=== PATIENT | male | born 1970 | race Caucasian/White ===

== ENCOUNTER 2020-11-19 17:24 | Inpatient (IN) | payer OTHER ==
[2020-11-19] MEDS ORDERED: NALOXONE 0.4 MG/ML 1 ML VIAL IV PRN (17:37)
--- NOTE | 2020-11-19 17:37 | ED ---
General Adult HPI - General Stated complaint: NSTEMI Time Seen by Provider: 11/19/20 17:28 Source: patient, EMS Mode of arrival: EMS - History of Present Illness Initial comments: Dictation was produced using [employer] dictation software. please excuse any grammatical, word or spelling errors. This patient was cared for during a federal and state declared state of emergency secondary to Covid 19 Chief Complaint: 50-year-old male sent in from [facility] for non-ST segment elevation [place] History of Present Illness: 50-year-old male he has been having on and off chest pain symptoms for the last several days. Patient has a history of tobacco abuse. He has no other medical history that he knows of. Patient was initially evaluated at [facility]. She had an elevated troponin of 1.3. He has symptoms concerning for non-ST segment elevation OH. According to the transferring physician discussion was held with our electrolysis needle operator who requested a semiconductor lab technician be activated for urgent cardiac catheterization. Patient states that his symptoms were initially pressure with a squeezing sensation to his chest. States that his pain is much improved after being treated with nitroglycerin and heparin at [facility]. Reports that his symptoms are nonpleuritic. He does not have any numbness and paresthesias to the arms or legs The ROS documented in this emergency department record has been reviewed and confirmed by me. Those systems with pertinent positive or negative responses have been documented in the HPI. All other systems are other negative and/or noncontributory. PHYSICAL EXAM: General Impression: Alert and oriented x3, not in acute distress HEENT: Normocephalic atraumatic, extra-ocular movements intact, pupils equal and reactive to light bilaterally, mucous membranes moist. Cardiovascular: Heart regular rate and rhythm Chest: Able to complete full sentences, no retractions, no tachypnea Abdomen: abdomen soft, non-tender, non-distended, no organomegaly Musculoskeletal: Pulses present and equal in all extremities, no peripheral edema Motor: no focal deficits noted Neurological: CN II-XII grossly intact, no focal motor or sensory deficits noted Skin: Intact with no visualized rashes Psych: Normal affect and mood ED course: 50-year-old male presents to our emergency department via EMS as an ER to ER transfer for non-ST segment elevation OH. Signs upon arrival are within acceptable limits. EKG does not show any signs of ST segment elevation OH. He does have some perhaps hyperacute T waves in his anterior precordial leads. Clinical presentation consistent with unstable angina/N ST JAMSH[facility]. I did speak with Dr. Schaeffer at 4:57 PM he requested a semiconductor lab technician be activated for urgent cardiac catheterization. Patient be admitted to [facility] for that his sound physician group. EKG interpretation: Ventricular rate 83, normal sinus rhythm,. Interval 172, QRS 94, QTC 451. No [place] prolongation, no QTC prolongation, no ST or T-wave changes noted. No old EKG for comparison. Overall, this EKG is unremarkable - Related Data Allergies Allergy/AdvReac Type Severity Reaction Status Date / Time No Known Allergies Allergy Verified 11/19/20 17:26 Review of Systems ROS Statement: Those systems with pertinent positive or pertinent negative responses have been documented in the HPI. ROS Other: All systems not noted in ROS Statement are negative. 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, ACL Past Psychological History: ADD/ADHD Smoking Status: Current every day smoker Past Alcohol Use History: Occasional Past Drug Use History: None Reported Course Vital Signs 11/19/20 17:26 Temperature 98 F Pulse Rate 79 Respiratory 18 Rate Blood Pressure 150/95 O2 Sat by Pulse 97 Oximetry Disposition Clinical Impression: NSTEMI (non-ST elevated myocardial infarction) Disposition: ADMITTED IP TO THIS [facility] Condition: Critical Referrals: Nonstaff,Physician [Primary Care Provider] - 1-2 days Decision Time: 17:36
[2020-11-19] MEDS ORDERED: HEPARIN SODIUM,PORCINE 5,000 UNIT/ML 1 ML VIAL IV PRN (17:38)
[2020-11-19] MEDS ORDERED: NITROGLYCERIN-D5W PMX 50 MG in DEXTROSE/WATER 1 250ML.BAG IV ONE (17:38)
[2020-11-19] MEDS ORDERED: IV FLUID CONTINUATION 1,000 ML IV ONE (17:41)
[2020-11-19] MEDS ORDERED: HEPARIN SOD,PORK IN 0.45% NACL 25,000 UNIT in 0.45% NACL 1 250ML.BAG IV SCH (17:45)
[2020-11-19] MEDS ORDERED: MIDAZOLAM 2 MG/2 ML VIAL IV ONE (17:53)
[2020-11-19] MEDS ORDERED: fentaNYL (PF) 50 MCG/ML 2 ML AMP ONE (17:54)
[2020-11-19] MEDS ORDERED: fentaNYL (PF) 50 MCG/ML 2 ML AMP IV ONE (17:54)
[2020-11-19] MEDS ORDERED: LIDOCAINE 1% INJ 10MG/ML (20 ML MDV) ONE (17:54)
[2020-11-19] MEDS ORDERED: VERAPAMIL 2.5 MG/ML 2 ML AMP ONE (17:54)
[2020-11-19] MEDS ORDERED: LIDOCAINE 1% INJ 10MG/ML (20 ML MDV) SQ ONE (17:55)
[2020-11-19] MEDS ORDERED: HEPARIN SODIUM 1,000 UN/ML (10ML VL) ONE (17:57)
[2020-11-19] MEDS ORDERED: VERAPAMIL SYRINGE (5 MG/10 ML) INTRAARTER ONE (18:00)
[2020-11-19] MEDS ORDERED: HEPARIN SODIUM 1,000 UN/ML (10ML VL) IV ONE ×2 (18:12→18:14)
[2020-11-19] MEDS ORDERED: PRASUGREL 10 MG TAB PO ONE (18:13)
[2020-11-19] MEDS ORDERED: PRASUGREL 10 MG TAB ONE (18:14)
[2020-11-19] MEDS ORDERED: IOPAMIDOL-370 125ML BTL INJ ONE ×2 (18:21)
[2020-11-19] MEDS ORDERED: IOPAMIDOL-370 100ML BTL INJ ONE ×3 (18:41→18:58)
[2020-11-19] MEDS: NITROGLYCERIN 1000MCG/10ML SYRINGE INTRACORON ONE ×3 (18:47→19:01)
[2020-11-19] MEDS ORDERED: RX INFO: IV CONTRAST WAS GIVEN 1 EACH MISC MISCELLANE PRN (19:32)
[2020-11-19] MEDS ORDERED: ATROPINE SULFATE 0.1 MG/ML 10ML SYRINGE IV PRN (19:32)
[2020-11-19] MEDS ORDERED: NITROGLYCERIN SL TABS 0.4 MG TAB SUBLINGUAL PRN (19:32)
[2020-11-19] MEDS ORDERED: ZOLPIDEM 5 MG TAB PO PRN (19:32)
[2020-11-19] MEDS ORDERED: MAG HYDROX/AL HYDROX/SIMETH 30 ML CUP PO PRN (19:32)
--- NOTE | 2020-11-19 19:39 | P.CRDCN ---
History of Present Illness History of present illness: HISTORY OF PRESENTING ILLNESS This is a pleasant 50-year-old male past medical history significant for tobacco abuse, cocaine abuse and ADHD taking Adderall and no other significant medical problems. Patient admits to only seeing a doctor for Adderall prescription however otherwise has been fairly healthy. He does smoke tobacco. Initially he denied any illicit drug use however on further interrogation he admits to cocaine abuse rarely with last cocaine use approximately 3-4 days ago. He has been having off-and-on chest pain over the last 7 days. He admits it has been occurring with exertion and felt like chest pressure going down his left arm. He presented to [facility] and was found to have non-STEMI with initial troponin 1. Otherwise platelets were 100 and creatinine normal. He was having ongoing chest pain and therefore recommendation was made for transfer to [facility] for urgent heart catheterization with possible PCI. States he rarely drinks alcohol. Family history of grandfather with coronary artery disease. DIAGNOSTICS EKG reveals sinus rhythm, ST depressions anterolaterally. Chest xray no acute process. Laboratory reviewed, creatinine 1.0, troponin 1, platelets 100. Current cardiac medications include none, Adderall. REVIEW OF SYSTEMS At the time of my exam: CONSTITUTIONAL: Denies fever or chills. CARDIOVASCULAR: + chest pain, +shortness of breath, no orthopnea, PND or palpitations. RESPIRATORY: Denies cough. GASTROINTESTINAL: Denies abdominal pain, diarrhea, constipation, nausea or vomiting. MUSCULOSKELETAL: Denies myalgias. NEUROLOGIC: Denies numbness, tingling or weakness. ENDOCRINE: Denies fatigue, weight change, polydipsia or polyurina. GENITOURINARY: Denies burning, hematuria or urgency with micturation. HEMATOLOGIC: Denies history of anemia or bleeding. PHYSICAL EXAMINATION Blood pressure 150/95 heart rate 79 afebrile and maintaining oxygen saturation on 2 L nasal cannula. CONSTITUTIONAL: Mild distress. HEENT: Head is normocephalic. Pupils are equal, round. Sclerae anicteric. Mucous membranes of the mouth are moist. No JVD. No carotid bruit. CHEST EXAMINATION: Lungs are clear to auscultation. No chest wall tenderness is noted on palpation or with deep breathing. HEART EXAMINATION: Regular rate and rhythm. S1, S2 heard. No murmurs, gallops or rub. ABDOMEN: Soft, nontender. Positive bowel sounds. EXTREMITIES: 2+ peripheral pulses, no lower extremity edema and no calf tenderness. NEUROLOGIC EXAMINATION: Patient is awake, alert and oriented x3. ASSESSMENT 1. Non-STEMI with ongoing chest pain 2. Tobacco abuse 3. Cocaine abuse 4. Elevated blood pressure 5. Mild thrombocytopenia, no history of hematochezia or melena PLAN Discussed risks and benefits of heart catheterization with patient who will take patient urgently for heart catheterization. No beta yany given recent cocaine use. Tobacco cessation. Further recommendations to follow. Check 2-D echo. 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, ACL Past Psychological History: ADD/ADHD Smoking Status: Current every day smoker Past Alcohol Use History: Occasional Past Drug Use History: None Reported Medications and Allergies Home Medications Medication Instructions Recorded Confirmed Type Dextroamphetamine/Amphetamine 30 mg PO BID 11/19/20 11/19/20 History [Adderall] Omeprazole Magnesium [PriLOSEC OTC] 20 mg PO DAILY PRN 11/19/20 11/19/20 History Allergies Allergy/AdvReac Type Severity Reaction Status Date / Time No Known Allergies Allergy Verified 11/19/20 17:43 Physical Exam Vitals: Vital Signs Temp Pulse Resp BP Pulse Ox 11/19/20 17:40 80 18 147/79 99 11/19/20 17:26 98 F 79 18 150/95 97 Intake and Output 11/19/20 11/19/20 11/19/20 06:59 14:59 22:59 Intake Total 600 Output Total 500 Balance 100 Intake: IV 600 Output: Urine 500 Other: Weight 99.79 kg Results Current Medications Generic Name Dose Route Start Last Admin Trade Name Freq PRN Reason Stop Dose Admin Heparin Sodium (Porcine) 0 unit 11/19/20 17:38 Heparin Sodium,Porcine 5,000 Unit/Ml 1 Ml Vial IV PER PROTOCOL PRN Low PTT Protocol Nitroglycerin/Dextrose 50 mg/ 250 mls @ 3 mls/hr 11/19/20 17:38 IV Solution IV 11/20/20 17:37 .Q24H ONE Protocol 10 MCG/MIN Heparin Sodium/Sodium Chloride 250 mls @ 9.999 mls/hr 11/19/20 17:45 25,000 unit/ Sodium Chloride IV .Q24H [facility] Protocol 10.02 UNITS/KG/HR Naloxone HCl 0.2 mg 11/19/20 17:37 Naloxone 0.4 Mg/Ml 1 Ml Vial IV Q2M PRN Opioid Reversal Intake and Output 11/19/20 11/19/20 11/19/20 06:59 14:59 22:59 Intake Total 600 Output Total 500 Balance 100 Intake: IV 600 Output: Urine 500 Other: Weight 99.79 kg Patient Weight 11/20/20 06:59 Weight 99.79 kg
--- NOTE | 2020-11-19 19:59 | P.PRCINT ---
Percutaneous Coronary Int. - Percutaneous Coronary Intervention Percutaneous Coronary Intervention: PROCEDURES PERFORMED: Left heart catheterization, bilateral coronary angiography, PCI of mid RCA with 3.5 x 38 mm Xience SEBLE distal RCA with a 3.5 x 23mm Xience SEBLE, post dilated with a 4.0 NC balloon, PCI of proximal circumflex with a 3.25 x 23mm Xience SEBLE, post dilated with a 3.5 NC balloon. INDICATION: Non-STEMI with ongoing chest pain HISTORY: Patient is a pleasant 50-year-old male with history of ADHD and tobacco abuse who presented with off and on chest pain over the last 7 days which has been ongoing since this morning. Patient initially presented to [facility] and was transferred for urgent catheterization due to non-STEMI with ongoing chest pain. Patient later admitted to cocaine abuse. CONSENT:I have discussed the risks, benefits and alternative therapies for the above-mentioned procedure and for both sedation/analgesia as well as necessary blood product administration, if indicated, as they pertain to this patient. The patient has indicated understanding and acceptance of the risks and procedures discussed. PROCEDURE: After the risks, benefits and alternatives of the above mentioned procedure explained in detail with the patient, informed consent was obtained. Patient was taken to the catheterization lab and prepped and draped in usual fashion. 1% lidocaine was used to anesthetize the right radial artery. A 6- Bruneian sheath was placed in the right radial artery using modified Seldinger technique. Left coronary angiography was performed with a 5-Bruneian JL 3.5 catheter and right coronary angiography was performed with a 5-Bruneian JR5 catheter in various views. Initial angiograms showed ZORA 1-2 flow of RCA and circumflex and somewhat surprisingly ZORA 0 flow of the LAD with no significant disease identified in the LAD and competitive flow. There was consideration of either microvascular dysfunction of the LAD or competitive flow from a more distal LAD lesion and collaterals. Therefore the decision was made to intervene on the RCA first. Heparin was given for an ACT over 250. A 6-Bruneian AL2 guide was used to engage the RCA. A 0.014 BMW wire was advanced into the distal RCA. The lesion was predilated with a 3.0 x 8 mm balloon. Next a 3.5 x 15 mm Xience drug-eluting stent was placed at the distal lesion. Angiograms did show some pseudo-lesion however a significant long 60-70% mid RCA stenosis with a more focal 80% stenosis. Therefore a 3.5 x 38 mm Xience SEBLE was placed at the mid RCA. The mid RCA stent was postdilated with a 4.0 x 20 mm noncompliant balloon. Preintervention there was ZORA 2 flow with 99% distal RCA and mid 80% RCA stenosis. Postintervention there was less than 10% stenosis with ZORA 3 flow. Next the left main was engaged with a 6-Bruneian CLS 3.5 guide. There was now ZORA 3 flow of the LAD without significant stenosis in the LAD. Further questioning revealed that he had in fact used cocaine the last 3-4 days and therefore consideration of spasm of LAD with microvascular dysfunction causing initial ZORA 0 flow. A 0.014 BMW wire was advanced into the distal circumflex. The lesion was predilated with a 2.5 x 12 mm balloon. Next a 3.25 x 23 mm Xience SEBLE was placed in the proximal circumflex. The stent was postdilated with a 3.5 x 12 mm noncompliant balloon. Preintervention there was ZORA 1 flow with a 99% circumflex stenosis and postintervention there was 0% stenosis with ZORA 3 flow. There was a more distal 30-40% circumflex stenosis which was there previously and felt best treated medically. The guide was then removed. The right radial sheath was removed and a TR band was placed with hemostasis achieved. The patient tolerated the procedure well. Patient was transported back to the post catheterization holding area in stable condition. Conscious Sedation: Patient was monitored under the direct supervision of vision of myself for conscious sedation using Versed and fentanyl for a total duration of 73 minutes HEMODYNAMICS: Aorta: 136/82 SELECTIVE CORONARY ARTERIOGRAPHY: LEFT MAIN: The left main is a large caliber vessel which bifurcates into the LAD and circumflex. There is no significant stenosis. LEFT ANTERIOR DESCENDING CORONARY ARTERY: LAD is a large caliber vessel which wraps around to the apex. There are mild luminal irregularities. Initial ZORA 0 flow improved to ZORA 3 flow without significant disease by the end of case concerning for microvascular disease. LEFT CIRCUMFLEX CORONARY ARTERY: Left circumflex is a moderate to large caliber vessel with a proximal 99% stenosis and a mid 30-40% stenosis. RIGHT CORONARY ARTERY: The right coronary artery is a large caliber vessel which gives off a PDA and PLV branch and is the dominant vessel. There is a proximal RCA 30% stenosis. There is a mid RCA long 60-70% stenosis with a more focal 80% stenosis. The distal RCA has a focal 99% stenosis with ZORA 2 flow. FINAL IMPRESSION: 1. Coronary artery disease as described above with 99% circumflex stenosis and 99% RCA stenosis, s/p PCI of mid RCA with 3.5 x 38 mm Xience SEBLE distal RCA with a 3.5 x 23mm Xience SEBLE, post dilated with a 4.0 NC balloon, PCI of proximal circumflex with a 3.25 x 23mm Xience SEBLE, post dilated with a 3.5 NC balloon. 2. Initial ZORA 0 flow of LAD without significant lesion identified, improved by then end of the case, suspect related to microvascular dysfunction from cocaine use and possible vasospasm. 3. Cocaine abuse 4. Tobacco abuse 5. NSTEMI PLAN: 1. Aggressive risk factor modification per most recent ACC/AHA guidelines. 2. Continue dual antiplatelets for 12 months. 3. No beta blockers secondary to cocaine abuse. Patient does not wish for family to know of cocaine abuse and will comply with his wishes. 4. Advised total tobacco and cocaine cessation.
[2020-11-19 20:48] LABS: Glucose,Whole Blood 103 mg/dL (75-99)
--- NOTE | 2020-11-19 22:24 | P.HPIM ---
History of Present Illness H&P Date: 11/19/20 This is a 50-year-old male with a PMH of tobacco abuse, cocaine abuse, and obesity who presented to the emergency room as a transfer from [facility]. The patient notes that he was in his usual state of health until about 7-10 days ago when he began having intermittent substernal pressure-like chest discomfort. He reports that the pain gradually worsened in severity, and was a 10 out of 10 earlier today, radiating to both arms, with associated nausea and shortness of breath. Reported that the pain had no alleviating or exacerbating features. Denied palpitations, dizziness, or diaphoresis. At that time, the patient decided to go to [facility] emergency room where he underwent an extensive evaluation which was all reviewed. Troponin was noted to be at 1.353, with an EKG showing normal sinus rhythm at [address]/T-wave changes noted. Chest x-ray was unremarkable. The patient was given sublingual nitroglycerin and was started on IV heparin infusion which did not completely alleviate his symptoms. At that time, the patient was ultimately transferred to [facility] emergency room. The case was discussed with cardiology who proceeded with an urgent cardiac catheterization (right radial approach) which revealed 99% stenosis of the circumflex and the RCA with PCI 3 (SEBLE) along with suspected vasospasm of LAD. The patient was subsequently brought to the emergency room where he was seen and evaluated. Patient reports feeling back to his baseline at time of interview. He reported no active complaints. Denied further episodes of chest discomfort, palpitations, or shortness of breath. Also denied nausea, vomiting, abdominal pain, fever, chills, cough. Reported that his last use of cocaine was a single line 5 days ago. The patient did report that he has been experiencing left-sided calf cramping pain after significant walking for the past 1-2 years, which is resolved with rest. Laboratory evaluation from [facility] was reviewed and revealed WBC count of 10.0, hemoglobin 15.4, platelets 100, INR 1.0, sodium 139, potassium 4.1, chloride 101, CO2 27.9, BUN 11, creatinine 1.0, glucose 105. Review of Systems Pertinent positives and negatives as discussed in HPI, a complete review of systems was performed and all other systems are negative. 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, ACL Past Psychological History: ADD/ADHD Smoking Status: Current every day smoker Past Alcohol Use History: Occasional Past Drug Use History: None Reported Medications and Allergies Home Medications Medication Instructions Recorded Confirmed Type Dextroamphetamine/Amphetamine 30 mg PO BID 11/19/20 11/19/20 History [Adderall] Omeprazole Magnesium [PriLOSEC OTC] 20 mg PO DAILY PRN 11/19/20 11/19/20 History Allergies Allergy/AdvReac Type Severity Reaction Status Date / Time No Known Allergies Allergy Verified 11/19/20 17:43 Physical Exam Vitals: Vital Signs Temp Pulse Resp BP Pulse Ox 11/19/20 17:40 80 18 147/79 99 11/19/20 17:26 98 F 79 18 150/95 97 Intake and Output 11/19/20 11/19/20 11/19/20 06:59 14:59 22:59 Intake Total 600 Output Total 500 Balance 100 Intake: IV 600 Output: Urine 500 Other: Weight 99.79 kg General: non toxic, no distress, appears at stated age, obese Derm: no unusual rashes/lesions no unusual ecchymoses, warm, dry Head: atraumatic, normocephalic, symmetric Eyes: EOMI, no lid lag, anicteric sclera, pupils equal round reactive to light ENT: Nose and ears atraumatic, no thrush, no pharyngeal erythema Neck: No thyromegaly, no cervical lymphadenopathy, trachea midline, supple Mouth: no lip lesion, mucus membranes moist Cardiovascular: S1S2 reg, no murmur, positive posterior tibial pulse bilateral, no edema, capillary refill less than 2 seconds Lungs: CTA bilateral, no rhonchi, no rales , no accessory muscle use Abdominal: soft, nontender to palpation, no guarding, no appreciable organomegaly, normal bowel sounds Ext: no gross muscle atrophy, muscle strength 5 out of 5 in all 4 extremities grossly, no contractures, Neuro: CN II-XI grossly intact, light touch intact all 4 extremities, finger to nose within normal limits, Psych: Alert, oriented, appropriate affect Results Labs: Abnormal Lab Results - Last 24 Hours (Table) 11/19/20 Range/Units 20:47 POC Glucose (mg/dL) 103 H (75-99) mg/dL Assessment and Plan Plan: NSTEMI status post PCI 3 (mid RCA, distal RCA, proximal circumflex) -Currently on heparin infusion, aspirin, Effient as per the Cardiology service -Cardiac monitoring -Strongly advised patient on importance of cessation from cocaine and tobacco abuse -Check A1c and lipid panel LLE intermittent claudication -Advised patient to follow-up with Primary care or a vascular surgery for SAMMY studies Thrombocytopenia, no baseline available -Monitor for now Cocaine and tobacco abuse -Strongly advised on the importance of cessation DVT prophylaxis -Heparin infusion The patient is admitted with an anticipated greater than 2 midnight stay for evaluation of NSTEMI CODE STATUS: Full Code Discussed with: Patient, RN Anticipated discharge date: 2-[address]: Home A total of 40 minutes was spent on the care of this complex patient more than 50% of the time was spent in counseling and care coordination.
[2020-11-20 04:30] LABS: HCT 44.9 % (39.0-53.0); MCH 32.5 pg (25.0-35.0); MCHC 33.5 g/dL (31.0-37.0); MCV 97.2 fL (80.0-100.0); Mean Platelet Volume 10.9; Platelet Count 97 k/uL (150-450); RBC 4.62 m/uL (4.30-5.90); RDW 12.6 % (11.5-15.5); WBC 8.8 k/uL (3.8-10.6)
[2020-11-20 04:37] LABS: African American GFR (CKD) >90 (>60 ml/min/1.73 sqM); Anion Gap 5 mmol/L; Blood Urea Nitrogen 11 mg/dL (9-20); Calcium 8.7 mg/dL (8.4-10.2); Carbon Dioxide 27 mmol/L (22-30); Chloride 104 mmol/L (98-107); Cholesterol 153 mg/dL (<200); Glucose 107 mg/dL (74-99); HDL Cholesterol 36 mg/dL (40-60); LDL Cholesterol,Calculated 91 mg/dL (0-99); Non-African American GFR(CKD) >90 (>60 ml/min/1.73 sqM); Sodium 136 mmol/L (137-145); Triglycerides 130 mg/dL (<150)
[2020-11-20 04:53] LABS: Creatine Kinase MB 74.8 ng/mL (0.0-2.4)
--- NOTE | 2020-11-20 07:54 | XR ---
EXAMINATION TYPE: XR chest 1V portable DATE OF EXAM: 11/20/2020 Comparison: None Clinical History: 50-year-old male male with shortness of breath Findings: The heart is upper limits of normal in size. Aorta and pulmonary vasculature within normal limits. For portable technique, some hazy peripheral densities likely related to overlying soft tissue. No fr ank consolidation or pleural effusion seen at this time. Impression: No definite acute cardiopulmonary process at this time.
[2020-11-20] MEDS: ASPIRIN 81 MG PO SCH (08:47)
[2020-11-20] MEDS: PRASUGREL 10 MG TAB PO SCH (11:56)
[2020-11-20 12:45] VITALS: BMI 32.7
--- NOTE | 2020-11-20 12:57 | P.PN ---
Subjective Progress Note Date: 11/20/20 No new complaints, patient doing well s/p LHC with SEBLE x 3 to the prox-left circ, prox and mid RCA. No chest pain, palps, dyspnea, sweats, Objective - Vital Signs Vital signs: Vital Signs Temp 97.5 F L 11/20/20 12:00 Pulse 76 11/20/20 12:48 Resp 19 11/20/20 12:00 BP 135/78 11/20/20 12:48 Pulse Ox 95 11/20/20 12:00 Intake & Output 11/19/20 11/20/20 11/20/20 18:59 06:59 18:59 Intake Total 600 1100 1020 Output Total 2400 1150 Balance 600 -1300 -130 Weight 99.79 kg 100.5 kg 100.5 kg Intake: IV 600 1100 300 0.9 1100 300 Oral 720 Output: Urine 2400 1150 Other: Voiding Method Urinal Urinal - Exam Gen: awake, alert HEENT: normocephalic, atraumatic, good hearing acuity, moist mucous membranes Resp: good air exchange, breathing comfortably with no accessory muscle use, clear to auscultation bilaterally CVS: good distal perfusion x 4, regular rate and rhythm without murmurs GI: soft, NTTP, ND : no SPT, no CVAT, haas catheter not present MSK: no pitting edema, no clubbing Neuro: non-focal, moving all extremities Psych: cooperative, euthymic mood - Labs CBC & Chem 7: 11/20/20 03:43 11/20/20 03:43 Labs: Abnormal Lab Results - Last 24 Hours (Table) 11/19/20 11/20/20 11/20/20 Range/Units 20:47 03:43 03:43 Plt Count 97 L (150-450) k/uL Sodium 136 L (137-145) mmol/L Glucose 107 H (74-99) mg/dL POC Glucose (mg/dL) 103 H (75-99) mg/dL CK-MB (CK-2) (0.0-2.4) ng/mL Troponin I (0.000-0.034) ng/mL HDL Cholesterol 36 L (40-60) mg/dL 11/20/20 Range/Units 03:43 Plt Count (150-450) k/uL Sodium (137-145) mmol/L Glucose (74-99) mg/dL POC Glucose (mg/dL) (75-99) mg/dL CK-MB (CK-2) 74.8 H (0.0-2.4) ng/mL Troponin I 25.000 H* (0.000-0.034) ng/mL HDL Cholesterol (40-60) mg/dL Assessment and Plan Assessment: NSTEMI status post PCI 3 (mid RCA, distal RCA, proximal circumflex) -Currently on ASA/Effient -Cardiac monitoring -Strongly advised patient on importance of cessation from cocaine and tobacco abuse -Check A1c and lipid panel; LDL 91, HDL 36; A1c pending -pending echo -cardiology following LLE intermittent claudication -Advised patient to follow-up with Primary care or a vascular surgery for SAMMY studies -patient will follow up in [place], which is where he is from [facility], no baseline available -Monitor for now Cocaine and tobacco abuse -Strongly advised on the importance of cessation DVT prophylaxis -Heparin infusion The patient is admitted with an anticipated greater than 2 midnight stay for evaluation of NSTEMI CODE STATUS: Full Code Discussed with: Patient, RN Anticipated discharge date: 2-[address]: Home
--- NOTE | 2020-11-20 13:31 | ECHOF ---
Referral Reason:s/p stemi, stent placement MEASUREMENTS -------- HEIGHT: 175.3 cm WEIGHT: 103.9 kg BP: 118/67 RVIDd: 3.0 cm (< 3.3) IVSd: 1.2 cm (0.6 - 1.1) LVIDd: 5.5 cm (3.9 - 5.3) LVPWd: 1.3 cm (0.6 - 1.1) IVSs: 1.7 cm LVIDs: 3.8 cm LVPWs: 1.8 cm LA Diam: 3.6 cm (2.7 - 3.8) Ao Diam: 4.3 cm (2.0 - 3.7) AV Cusp: 2.3 cm (1.5 - 2.6) MV EXCURSION: 17.354 mm (> 18.000) MV EF SLOPE: 110 mm/s (70 - 150) EPSS: 1.0 cm MV E Harley: 0.80 m/s MV DecT: 185 ms MV A Harley: 0.94 m/s MV E/A Ratio: 0.85 AV maxP.11 mmHg AV meanP.65 mmHg FINDINGS -------- Sinus rhythm. This was a technically adequate study. The left ventricular size is normal. There is mild concentric left ventricular hypertrophy. Overa ll left ventricular systolic function is normal with, an EF between 60 - 65 %. The right ventricle is normal in size. The left atrium is normal in size. The right atrium is normal in size. Interatrial and interventricular septum intact. The aortic valve is bicuspid. There is mild aortic valve sclerosis. There is mild aortic stenosis present. Peak/mean gradient across the Aortic Valve is 13.11mmHg / 5.65mmHg. There is trace to mild mitral regurgitation. The tricuspid valve appears structurally normal. The pulmonic valve was not well visualized. The aortic root is dilated measuring 4.3cm. Normal inferior vena cava with normal inspiratory collapse consistent with estimated right atrial pre ssure of 5 mmHg. There is no pericardial effusion. CONCLUSIONS -------- 1. The left ventricular size is normal. 2. There is mild concentric left ventricular hypertrophy. 3. Overall left ventricular systolic function is normal with, an EF between 60 - 65 %. 4. The aortic valve is bicuspid. 5. There is mild aortic valve sclerosis. 6. There is mild aortic stenosis present. 7. Peak/mean gradient across the Aortic Valve is 13.11mmHg / 5.65mmHg. 8. There is trace to mild mitral regurgitation. 9. The aortic root is dilated measuring 4.3cm. 10. There is no pericardial effusion. TELEPHONE MESSENGER: Lara Kent RDCS
--- NOTE | 2020-11-20 13:38 | PN ---
PROGRESS NOTE Jose is a 50-year-old gentleman who is admitted to hospital with acute coronary syndrome. He was initially in the emergency room at [facility] and had been transferred over to [facility]. He has history of tobacco abuse, cocaine abuse, and has attention deficit hyperactivity disorder. The patient apparently used cocaine a few days prior to coming in. Underwent cardiac catheterization and angioplasty of the mid RCA and proximal circumflex coronary artery. This morning, patient of is free of chest pain and is free of symptoms. On exam: Heart rate is 93 beats per minute. Blood pressure is 181/61, respiratory rate 18, O2 sats 96% on room air. There is no jugular venous distention. Chest exam reveals good air entry bilaterally. Heart exam reveals first and second heart sounds. No gallop. No murmur. No rub. Right radial artery access site appears normal. Exam of extremities did not reveal any edema. Labs show a hemoglobin of 15, platelet count is 97. Troponin is 55. ASSESSMENT: 1. Acute coronary syndrome. 2. Cocaine abuse. PLAN: I will treat the patient with aspirin, Lipitor, Effient. I was going to treat him with metoprolol, but given the history of cocaine abuse, I am going to stop it. I will obtain a 2D echo to evaluate his LV function. We will transfer him out of ICU. SUPA / BRIAN: [id number] /
[2020-11-20 14:24] LABS: Hemoglobin A1C 5.6 % (4.0-6.0)
[2020-11-20] MEDS: ATORVASTATIN 80 MG TAB PO SCH (20:34)
[2020-11-20] MEDS ORDERED: METOPROLOL TARTRATE 25 MG TAB PO SCH (21:00)
--- NOTE | 2020-11-21 07:45 | XR ---
EXAMINATION TYPE: XR chest 1V portable DATE OF EXAM: 11/21/2020 COMPARISON: 11/20/2020 HISTORY: Shortness of breath TECHNIQUE: Single frontal view of the chest is obtained. FINDINGS: Heart size is prominent. No overt failure or pneumothorax. No pleural effusion. No interst itial edema. No consolidative pneumonia. Mild soft tissue prominence right paratracheal region. IMPRESSION: No acute process. Mild indentation right paratracheal line could be positional slight ro tation follow-up x-ray recommended.
[2020-11-21] MEDS: PRASUGREL 10 MG TAB PO SCH (07:46)
[2020-11-21] MEDS: ASPIRIN 81 MG PO SCH (07:47)
[2020-11-21 08:36] LABS: African American GFR (CKD) >90 (>60 ml/min/1.73 sqM); Anion Gap 7 mmol/L; Blood Urea Nitrogen 12 mg/dL (9-20); Calcium 8.9 mg/dL (8.4-10.2); Carbon Dioxide 29 mmol/L (22-30); Chloride 103 mmol/L (98-107); Glucose 112 mg/dL (74-99); Non-African American GFR(CKD) >90 (>60 ml/min/1.73 sqM); Potassium 4.4 mmol/L (3.5-5.1); Sodium 139 mmol/L (137-145)
[2020-11-21] MEDS ORDERED: METOPROLOL TARTRATE 12.5 MG TAB PO SCH (13:15)
--- NOTE | 2020-11-21 14:41 | P.PN ---
Subjective Progress Note Date: 11/21/20 This is a pleasant 50-year-old gentleman who was admitted to the hospital with acute coronary syndrome. He initially presented to the emergency room at [facility] and was transferred here to [facility]. He has a history of tobacco abuse, cocaine abuse, and attention deficit hyperactivity disorder. Patient apparently uses cocaine a few days prior to coming in. He is found to have elevation of his troponins which peaked at 25. He underwent cardiac catheterization and angioplasty of the mid RCA and proximal circumflex coronary artery. Overall he is doing well. Vital signs are stable. Labs are stable. He is currently on aspirin 81 mg by mouth daily, Lipitor 80 mg by mouth daily at bedtime and Effient. An echocardiogram done yesterday which showed normal LV systolic function with an ejection fraction between 60-65%, bicuspid aortic valve, mild aortic valve sclerosis, mild aortic stenosis, trace to mild mitral regurgitation and dilated aortic root at 4.3 cm. Objective - Vital Signs Vital signs: Vital Signs Temp 97.2 F L 11/21/20 12:00 Pulse 76 11/21/20 12:00 Resp 18 11/21/20 12:00 BP 136/81 11/21/20 12:00 Pulse Ox 98 11/21/20 12:00 Intake & Output 11/20/20 11/21/20 11/21/20 18:59 06:59 18:59 Intake Total 1200 236 Output Total 1150 Balance 50 236 Weight 100.5 kg 98.3 kg Intake: IV 300 0.9 300 Oral 900 236 Output: Urine 1150 Other: Voiding Method Urinal Toilet # Voids 1 3 - Exam PHYSICAL EXAMINATION: HEENT: Head is atraumatic, normocephalic. Pupils equal, round. Neck is supple. There is no elevated jugular venous pressure. HEART EXAMINATION: Heart sounds regular, S1 and S2 normal. No murmur or gallop heard. CHEST EXAMINATION: Lungs are clear to auscultation and precussion. No chest wall tenderness is noted on palpation or with deep breathing. ABDOMEN: Soft, nontender. Bowel sounds are heard. No organomegaly noted. EXTREMITIES: 2+ peripheral pulses with no evidence of peripheral edema and no calf tenderness noted. Right radial puncture site soft with no ecchymosis or hematoma. NEUROLOGIC patient is awake, alert and oriented x3. . - Labs CBC & Chem 7: 02/13/21 03:43 11/21/20 07:09 Labs: Abnormal Lab Results - Last 24 Hours (Table) 11/21/20 Range/Units 07:09 Glucose 112 H (74-99) mg/dL Assessment and Plan Assessment: #1 non-ST elevation MO status post PCI involving the RCA and circumflex 2 cocaine abuse 3 evidence of bicuspid aortic valve 4 dilated aortic root Plan: From cardiology's perspective medications reviewed and will continue the same. Anticipate the patient will be discharged tomorrow. We'll continue to follow the patient right further recommendations accordingly. The above dictated assessment and findings were discussed with signing physician. The impression and plan of care have been directed as dictated. Ivy Galaviz, Nurse Practitioner, acting as scribe for signing physician.
--- NOTE | 2020-11-21 15:17 | P.PN ---
Subjective Progress Note Date: 11/21/20 No new complaints today. Objective - Vital Signs Vital signs: Vital Signs Temp 97.2 F L 11/21/20 12:00 Pulse 76 11/21/20 12:00 Resp 18 11/21/20 12:00 BP 136/81 11/21/20 12:00 Pulse Ox 98 11/21/20 12:00 Intake & Output 11/20/20 11/21/20 11/21/20 18:59 06:59 18:59 Intake Total 1200 236 Output Total 1150 Balance 50 236 Weight 100.5 kg 98.3 kg Intake: IV 300 0.9 300 Oral 900 236 Output: Urine 1150 Other: Voiding Method Urinal Toilet # Voids 1 3 - Exam Gen: awake, alert HEENT: normocephalic, atraumatic, good hearing acuity, moist mucous membranes Resp: good air exchange, breathing comfortably with no accessory muscle use, clear to auscultation bilaterally CVS: good distal perfusion x 4, regular rate and rhythm without murmurs GI: soft, NTTP, ND : no SPT, no CVAT, haas catheter not present MSK: no pitting edema, no clubbing Neuro: non-focal, moving all extremities Psych: cooperative, euthymic mood - Labs CBC & Chem 7: 11/20/20 03:43 11/21/20 07:09 Labs: Abnormal Lab Results - Last 24 Hours (Table) 11/21/20 Range/Units 07:09 Glucose 112 H (74-99) mg/dL Assessment and Plan Assessment: NSTEMI status post PCI 3 (mid RCA, distal RCA, proximal circumflex) -Currently on ASA/Effient -Cardiac monitoring -Strongly advised patient on importance of cessation from cocaine and tobacco abuse -Check A1c and lipid panel; LDL 91, HDL 36; A1c pending -pending echo -cardiology following LLE intermittent claudication -Advised patient to follow-up with Primary care or a vascular surgery for SAMMY studies -patient will follow up in [place], which is where he is from Thrombocytopenia, no baseline available -Monitor for now Cocaine and tobacco abuse -Strongly advised on the importance of cessation DVT prophylaxis -Heparin infusion The patient is admitted with an anticipated greater than 2 midnight stay for evaluation of NSTEMI CODE STATUS: Full Code Discussed with: Patient, RN Anticipated discharge date: 2-[address]: Home
[2020-11-21] MEDS: ATORVASTATIN 80 MG TAB PO SCH (20:39)
[2020-11-22] MEDS: PRASUGREL 10 MG TAB PO SCH (10:20)
[2020-11-22] MEDS: ASPIRIN 81 MG PO SCH (10:20)
[2020-11-22 10:50] VITALS: BP 131/71; PULSE 69; RESP 17; TEMP 98.4
--- NOTE | 2020-11-22 11:40 | P.DS ---
Providers Date of admission: 11/19/20 17:37 Expected date of discharge: 11/22/20 Attending physician: Navjot Rose MD Consults: 11/19/20 17:37 Consult Physician Stat Consulting Provider: Miguel Angel Schaeffer Consult Reason/Comments: nstemi Do you want consulting provider notified?: Already Contacted 11/19/20 19:32 Consult Physician Routine Consulting Provider: [facility] Consult Reason/Comments: Post Interventional patient Do you want consulting provider notified?: Already Contacted Primary care physician: Physician Nonstaff Hospital Course: 1. NSTEMI 2. LLE claudication 3. Thrombocytopenia 4. Cocaine/Tobacco Abuse 50 year old man with history of cocaine/tobacco abuse presented with acute onset chest pain as a transfer from [facility], and was taken emergently to the medical laboratory scientist where he was discovered to have 3 lesions warranting PCI (mid RCA, distal RCA, prox-left circ). He was loaded with effient, and started on aspirin and statin. He was considered for beta-yany, but this was deferred due to history of cocaine abuse. Post-cath echo demonstrated good EF, no WMA, mild , no diastolic dysfunction. Patient was cleared by cardiology to go home with plans to follow up with a technical buyer in [place], which is where he is from. Cocaine/tobacco use cessation counseling given. I spent 31 minutes coordinating this discharge. Assessment: Gen: awake, alert HEENT: normocephalic, atraumatic, good hearing acuity, moist mucous membranes Resp: good air exchange, breathing comfortably with no accessory muscle use, clear to auscultation bilaterally CVS: good distal perfusion x 4, regular rate and rhythm without murmurs GI: soft, NTTP, ND : no SPT, no CVAT, haas catheter not present MSK: no pitting edema, no clubbing Neuro: non-focal, moving all extremities Psych: cooperative, euthymic mood Patient Condition at Discharge: Good Plan - Discharge Summary Discharge Rx Participant: Yes New Discharge Prescriptions: New Aspirin 81 mg PO DAILY #30 chew Prasugrel [Effient] 10 mg PO DAILY #30 tab Atorvastatin [Lipitor] 80 mg PO HS #30 tab Nitroglycerin Sl Tabs [Nitrostat] 0.4 mg SUBLINGUAL Q5M PRN #15 tab PRN Reason: Chest Pain Continue Omeprazole Magnesium [PriLOSEC OTC] 20 mg PO DAILY PRN PRN Reason: Heartburn Discontinued Dextroamphetamine/Amphetamine [Adderall] 30 mg PO BID Discharge Medication List Omeprazole Magnesium [PriLOSEC OTC] 20 mg PO DAILY PRN 11/19/20 [History] Aspirin 81 mg PO DAILY #30 chew 11/21/20 [Rx] Atorvastatin [Lipitor] 80 mg PO HS #30 tab 11/21/20 [Rx] Nitroglycerin Sl Tabs [Nitrostat] 0.4 mg SUBLINGUAL Q5M PRN #15 tab 11/21/20 [Rx] Prasugrel [Effient] 10 mg PO DAILY #30 tab 11/21/20 [Rx] Follow up Appointment(s)/Referral(s): Miguel Angel Schaeffer DO [STAFF PHYSICIAN] - 1 Week Nonstaff,Physician [Primary Care Provider] - 1-2 days Patient Instructions/Handouts: *Surgery [facility] - After Heart Catheterization - [place] Worker Instructions, Heart Attack (DC), After Radial Heart Catheterization (GEN) Activity/Diet/Wound Care/Special Instructions: do not submerge wrist in water avoid bending/flexing wrist for 1 week do not lift any heavy object for 7-10 days Discharge Disposition: HOME SELF-CARE
--- NOTE | 2020-11-22 13:50 | P.PN ---
Subjective Progress Note Date: 11/22/20 HISTORY OF PRESENT ILLNESS: Patient is status post cardiac catheterization with PCI to the RCA and circumflex. Patient denies chest pain or pressure. He denies shortness of breath. Vital signs are stable. He is anxious to be discharged home today. PHYSICAL EXAM: VITAL SIGNS: Reviewed. GENERAL: Well-developed in no acute distress. NECK: Supple. No JVD or thyromegaly LUNGS: Respirations even and unlabored. Lungs essentially clear to auscultation bilaterally. HEART: Regular rate and rhythm. S1 and S2 heard. EXTREMITIES: Normal range of motion. No clubbing or cyanosis. Peripheral pulses intact. No lower extremity edema ASSESSMENT: Non-ST elevated myocardial infarction, status post cardiac cath with PCI to RCA and circumflex Cocaine abuse PLAN: Continue current cardiac medications Patient may be discharged home today from a cardiac symptom. He is to follow up outpatient with Dr. Schaeffer Nurse practitioner note has been reviewed by physician. Signing provider agrees with the documented findings, assessment, and plan of care. Objective - Vital Signs Vital signs: Vital Signs Temp 98.4 F 11/22/20 08:00 Pulse 69 11/22/20 08:00 Resp 17 11/22/20 08:00 BP 131/71 11/22/20 08:00 Pulse Ox 97 11/22/20 08:00 Intake & Output 11/21/20 11/22/20 11/22/20 18:59 06:59 18:59 Intake Total 236 236 125 Output Total 300 Balance 236 236 -175 Weight 98.5 kg Intake: Oral 236 236 125 Output: Urine 300 Other: Voiding Method Toilet Toilet # Voids 3 2 1 - Labs CBC & Chem 7: 11/20/20 03:43 11/21/20 07:09
== END 2020-11-22 11:51 | disposition home or self-care (01) | DRG 247 ==
LOC: EC 17:24 → 2SICU 17:37 → 3SCARD 11-20 12:34
PROVIDERS: ADMIT Internal Medicine; ATTEND Internal Medicine
PROC: 027136Z Dilation of Coronary Artery, Two Arteries with Three Drug-eluting Intraluminal Devices, Percutaneous Approach (ICD-10-PCS; principal; 2020-11-19 17:31)
PROC: 4A023N7 Measurement of Cardiac Sampling and Pressure, Left Heart, Percutaneous Approach (ICD-10-PCS; principal; 2020-11-19 17:31)
PROC: B2111ZZ Fluoroscopy of Multiple Coronary Arteries using Low Osmolar Contrast (ICD-10-PCS; principal; 2020-11-19 17:31)
DX: I21.4 Non-ST elevation (NSTEMI) myocardial infarction (principal); Q23.1 Congenital insufficiency of aortic valve; D69.6 Thrombocytopenia, unspecified; I73.9 Peripheral vascular disease, unspecified; I77.819 Aortic ectasia, unspecified site; F14.10 Cocaine abuse, uncomplicated; I25.10 Atherosclerotic heart disease of native coronary artery without angina pectoris; I34.0 Nonrheumatic mitral (valve) insufficiency; F90.9 Attention-deficit hyperactivity disorder, unspecified type; R03.0 Elevated blood-pressure reading, without diagnosis of hypertension; E66.9 Obesity, unspecified; Z68.32 Body mass index [BMI] 32.0-32.9, adult; F17.210 Nicotine dependence, cigarettes, uncomplicated; Z71.6 Tobacco abuse counseling; Z79.899 Other long term (current) drug therapy; Z87.19 Personal history of other diseases of the digestive system; Z87.39 Personal history of other diseases of the musculoskeletal system and connective tissue; Z98.890 Other specified postprocedural states; Z82.49 Family history of ischemic heart disease and other diseases of the circulatory system
CPT/HCPCS: 71045; 80048; 80061; 82553; 83036; 84484; 85027; 85347; 93005; 93306; 93458; 99285